=== PATIENT | male | born 1980 | race Caucasian/White ===

== ENCOUNTER 2020-07-14 12:12 | Emergency (ER) | payer OTHER, SELFPAY ==
--- NOTE | ~2020-07-14 | XR_ITS ---
EXAMINATION: XR hand LT min 3V DATE: 07/14/2020 12:27 INDICATION: Left hand pain post fall TECHNIQUE: Posteroanterior, oblique and lateral views of the left hand were obtained. COMPARISON: None. FINDINGS: Alignment is normal. No fracture. Joint spaces are normal. Soft tissues are unremarkable. IMPRESSION: 1. . Negative left hand radiographs. Reviewed, dictated and finalized at location A. HOLDER
--- NOTE | 2020-07-14 12:15 | ED.GENADULT ---
HPI - General Adult General Chief complaint: Extremity Injury, Upper Stated complaint: Left hand Pain Time Seen by Provider: 07/14/20 12:15 Source: patient Mode of arrival: ambulatory Limitations: no limitations History of Present Illness HPI narrative: 40-year old male patient presents to the [facility] with complaints of left hand pain. Patient states that he was walking around in his backyard going down a couple concrete steps when he slipped on the steps and using his left hand trying to brace his fall he hit his left hand. Patient states mostly having pain to the fourth and fifth fingers and metacarpals. Patient denies take anything for pain or icing it. Denies hitting his head or loss of consciousness at the time of the fall. Related Data Home Medications Medication Instructions Recorded Confirmed No Home Medications 07/14/20 07/14/20 Allergies Allergy/AdvReac Type Severity Reaction Status Date / Time No Known Allergies Allergy Verified 07/03/19 10:13 Review of Systems Review of Systems: Narrative: CONSTITUTIONAL: Denies fever, chills, or sweats. EYES: Denies visual changes, redness, or discharge. ENT: Denies rhinorrhea, congestion, sore throat, or otalgia. CARDIOVASCULAR: Denies chest pain, palpitations, or edema. RESPIRATORY: Denies cough or dyspnea. GASTROINTESTINAL: Denies abdominal pain, nausea, vomiting, or diarrhea. GENITOURINARY: Denies dysuria or hematuria. SKIN: Denies rash or itching. MUSCULOSKELETAL: Denies back pain, joint pain, or myalgia. Positive left hand pain NEUROLOGIC: Denies headache, numbness, or weakness. PSYCHIATRIC: Denies anxiety or depression. [facility] Surgical History Surgical History (Updated 07/14/20 @ 12:23 by CHIKI Sykes) H/O vasectomy Reversal of vasectomy Social History Social History (Updated 07/14/20 @ 12:23 by CHIKI Sykes) Smoking status: Current every day smoker Gender identity (if verbalized by the patient): Male Comments At the time of my signature I agree with nursing past medical history, surgical, social, and family history. There is no relevant family history pertinent to the presenting complaint. Exam Narrative: Exam Narrative: GENERAL: Well-appearing, well-nourished, and in no acute distress. HEAD: Normocephalic, atraumatic. EYES: PERRLA and EOMI. ENT: Nares clear, no rhinorrhea or epistaxis. Mucous membranes moist. NECK: Supple. No lymphadenopathy CHEST: Clear to auscultation. No respiratory distress. HEART: Regular rate and rhythm. No murmur heard. Normal peripheral pulses. ABDOMEN: Soft, nontender, nondistended, normal active bowel sounds. EXTREMITIES: The L hand is without obvious asymmetry or deformity when compared to the R hand. No swelling, erythema, atrophy, or obvious deformity. No open wounds, nail avulsion, tissue avulsion, partial or complete amputation, subungual hematoma, bony deformity. Patient has tenderness to the fourth and fifth metacarpals on the dorsal side of the hand. Patient also has some tenderness along the MCP P joints on palpation of the fourth finger. Normal cascade of fingers. Normal flexion and extension of fingers. FDS and FDP intact aganist restistance. No focal fullness, thobbing pain, swelling of fingertip. Pulses and cap refill. SKIN: Warm, dry, no rash. NEURO: No focal deficits. Alert and oriented x3. Course Reevaluation(s) Reevaluation #1: Reevaluated patient after his x-ray resulted. Notified him that there is no acute fractures noted in the x-ray today. We will go ahead and splint his fourth finger on the left hand just for comfort. Discussed with him he can take Tylenol and ibuprofen for the pain continue to use ice to help with any swelling. Discussed with patient that we will give him a copy of the x-ray and if he has any further issues he will need to follow-up with his primary doctor. Patient verbalized understanding denies any other questions or concerns at this time. Date:
[2020-07-14 12:20] VITALS: BP 139/84; PULSE 94; RESP 16; TEMP 37.2; O2SAT 99
[2020-07-14 12:23] VITALS: BP 139/84; PULSE 94; RESP 16; TEMP 37.2; O2SAT 99
== END 2020-07-14 12:59 | disposition home or self-care (01) ==
PROVIDERS: Emergency Provider Nurse Practitioner Family
DX: S63.615A Unspecified sprain of left ring finger, initial encounter (principal); W10.9XXA Fall (on) (from) unspecified stairs and steps, initial encounter; F17.200 Nicotine dependence, unspecified, uncomplicated
CPT/HCPCS: 29130; 73130; 99213; G0463

== ENCOUNTER 2022-04-29 18:24 | Emergency (ER) | payer OTHER, SELFPAY ==
--- NOTE | 2022-04-29 19:27 | ED.URI ---
HPI - URI/Sore Throat General Chief Complaint: Upper Respiratory Infection Stated Complaint: sore throat History of Present Illness HPI Narrative: 42-year-old male presented for complaint of sore throat for 3 days. Pain is worse in the morning. Endorses his children were treated for strep throat. Denies cough, congestion, nausea, vomiting, diarrhea, fevers or chills. Not taking anything for symptoms. Related Data Allergies Allergy/AdvReac Type Severity Reaction Status Date / Time amoxicillin Allergy Rash Verified 04/29/22 19:06 Review of Systems Review of Systems: CONSTITUTIONAL: Denies body aches, fever, chills, or sweats. EYES: Denies visual changes, redness, or discharge. ENT: Denies rhinorrhea, congestion, or otalgia. CARDIOVASCULAR: Denies chest pain, palpitations, or edema. RESPIRATORY: Denies dyspnea. GASTROINTESTINAL: Denies abdominal pain, nausea, vomiting, or diarrhea. SKIN: Denies rash, itching, or wounds. MUSCULOSKELETAL: Denies back pain, joint pain, or myalgia. NEUROLOGIC: Denies headache [facility] Surgical History Surgical History H/O vasectomy Reversal of vasectomy Social History Social History Smoking status: Current every day smoker Gender identity (if verbalized by the patient): Male Exam Narrative: GENERAL: Ill-appearing, nontoxic EYES: conjunctivae clear ENT: Mucous membranes moist. TMs pearly simpson with normal light reflex bilaterally; no tragal tenderness. Oropharynx erythematous without lesions. Tonsils enlarged 3+ and without exudate. No drooling, no hoarseness, no trismus, uvula midline. No tripod positioning, hot potato voice, or soft palate swelling. NECK: Supple. No lymphadenopathy CHEST: Clear to auscultation, breath sounds equal. HEART: Regular rate and rhythm. No murmur heard. SKIN: Warm, dry, no rash. NEURO: Alert and oriented x3. Course Course Emergency Course: Patient is aware of diagnosis, understands and agrees to treatment plan. Anticipatory guidance given. Patient agrees to follow-up as directed and is aware of reasons to seek care at the emergency department. Portions of this record may have been created with voice recognition software Level of Care: Express Care Visit MDM - URI/Sore Throat MDM Narrative Medical decision making narrative: strep result reviewed with pt. Advise supportive treatments. PCN allergy. Patient is appropriate for outpatient treatment and follow-up. Differential Diagnosis Differential diagnosis: Likely upper respiratory infection, viral infection and pharyngitis Lab Data Labs: Strep Screen Positive Group A Strep *(Reference Range: Negative)* Discharge Plan Discharge Clinical Impression: Strep pharyngitis Patient Disposition: Home, Self-Care Condition: Stable Instructions: Strep Throat (ED) Additional Instructions: Return to work after 24 hours of antibiotic therapy, provided you are fever free and otherwise well. - Take the antibiotic as directed. Fever and sore throat typically resolve within one to three days. -Eat and drink things that are easy to swallow, like soft foods, cool liquids, tea with honey, or popsicles . -Salt water gargles and/or may use topical anesthetic (Chloraseptic spray) or lozenges to relieve dryness or throat pain -Alternate Tylenol and ibuprofen as needed for pain and fever as directed. 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 Throw away the toothbrush after 24hours of antibiotic. -Follow up with primary care provider in 2-3 days if condition is not improving -Go to the ER if you have trouble breathing, cannot drink enough fluids, have muffled voice or drooling, difficulty opening your mouth, or severe swelling. Prescriptions: New prednisone 50 mg tablet
== END 2022-04-29 19:34 | disposition home or self-care (01) ==
LOC: EXPBETH 18:26
PROVIDERS: Emergency Provider Nurse Practitioner Family
DX: J02.0 Streptococcal pharyngitis (principal)
CPT/HCPCS: 87880; 99213; G0463

== ENCOUNTER 2024-09-05 15:32 | Emergency (ER) | payer OTHER, SELFPAY ==
[2024-09-05 15:36] VITALS: BP 134/78; PULSE 95; RESP 20; TEMP 36.9; O2SAT 98
--- OUTSIDE RECORDS SUMMARY | 2024-09-05 15:36 | XMS_ITS | Clinical Summary ---
Author Organization [facility] [employer] Address [address] [place] [address] Care Team Providers Care Bill Collector Name Role Phone Tina Evans MD Primary Care Provider [phone] Source Comments [facility] [employer],[facility]-owned [facility] and Associated [facility]ician Practices is amultiple site organization consisting of ambulatory clinics and hospital sitesin [place], [place], [place] and [place]. This disclosure is being madepursuant to the Care Everywhere program and may not contain all information available regarding this patient. Last updated 18.[facility] [employer] Allergies No known active allergies Medications * Be aware that medications may not be up to date on this document. Alwaysverify current medications with the patient. Medication Sig Dispensed Refills Start Date End Date Status albuterol HFA (PROAIR HFA) 108 (90 BASE) MCG/ACT inhaler Inhale 2 puffs by mouth every 4 hours as needed for Shortness of Breath, Wheezing or Cough 1 Inhaler 09/14/2017 Active methylPREDNISolone (MEDROL DOSEPAK) 4 MG tablet Take by mouth as directed 1 Each 09/14/2017 Active Active Problems Problem Noted Date Diagnosed Date fall11/23/2016 Immunizations Name Administration Dates Next Due TDAP (7yrs+) 11/23/2016 Social History Tobacco Use Types Packs/Day Years Used Date Smoking Tobacco: Every Day Alcohol Use Standard Drinks/Week Comments Yes 0 (1 standard drink = 0.6 oz pur e alcohol) 3 beers per day Sex and Gender Information Value Date Recorded Sex Assigned at Not on file Gender Identity Not on file Sexual Orientation Not on file Last Filed Vital Signs Vital Sign Reading Time Taken Comments Blood Pressure 126/70 09/14/2017 10:11 AM EDUCATION TEACHER Pulse 75 09/14/2017 10:11 AM EDUCATION TEACHER Temperature 37.2 C (98.9 F) 09/14/2017 10:11 AM EDUCATION TEACHER Respiratory Rate 18 11/23/2016 6:18 PM CDT Oxygen Saturation 96% 09/14/2017 10:11 AM EDUCATION TEACHER Inhaled Oxygen Concentration - - Weight 136.1 kg (300 lb) 09/14/2017 10:11 AM EDUCATION TEACHER Height 180.3 cm (5' 11 ) 09/14/2017 10:11 AM EDUCATION TEACHER Body Mass Index 41.84 09/14/2017 10:11 AM EDUCATION TEACHER Plan of Treatment Health Maintenance Due Date Last Done Comments LIPID TESTING 1982 HIV SCREENING 1997 HEPATITIS C SCREENING 02/29/2000 HEPATITIS B VACCINE (1 of 3 - 19+ 3-dose series) 2001 PNEUMOCOCCAL VACCINE (1 of 2 - PCV) 2001 COVID-19 VACCINE ( - 2023-2 5 season) 2024 INFLUENZA VACCINE (#1) 2024 DEPRESSION SCREENING 07/14/2024 DTAP/TDAP/TD VACCINES (2 - T d or Tdap) 11/23/2026 11/23/2016 ZOSTER VACCINE (1 of 2) 2032 HIB VACCINE Aged Out No longer eligi ble based on patient's age to complete this topic HPV VACCINE Aged Out No longer eligi ble based on patient's age to complete this topic MENINGOCOCCAL (Group B) VACCINE Aged Out No longer eligible based on patient's age to complete this topic MENINGOCOCCAL VACCINE Aged Out No ronda nathan eligible based on patient's age to complete this topic Care Teams Bill Collector Relationship Specialty Start Date End Date Tina Evans MD [address], [place] [address] PCP - General Internal Medicine 11/23/16
--- OUTSIDE RECORDS SUMMARY | 2024-09-05 15:36 | XMS_ITS | Referral Summary ---
Author Organization [facility] [employer] Address [address] [place] [address] Care Team Providers Care Painter Decorator Name Role Phone Tina Evans MD Primary Care Provider [phone] Source Comments [facility]-owned [facility] and [facility]ician Practices is amultiple site organization consisting of ambulatory clinics and hospital sitesin [place], [place], [place] and [place]. This disclosure is being madepursuant to the Care Everywhere program and may not contain all information available regarding this patient. Last updated 18.[facility] [employer] Allergies No known active allergies Medications * [...] Comments Blood Pressure 126/70 09/14/2017 10:11 AM SALES AGENT INSURANCE Pulse 75 09/14/2017 10:11 AM SALES AGENT INSURANCE Temperature 37.2 C (98.9 F) 09/14/2017 10:11 AM SALES AGENT INSURANCE Respiratory Rate 18 11/23/2016 6:18 PM CDT Oxygen Saturation 96% 09/14/2017 10:11 AM SALES AGENT INSURANCE Inhaled Oxygen Concentration - - Weight 136.1 kg (300 lb) 09/14/2017 10:11 AM SALES AGENT INSURANCE Height 180.3 cm (5' 11 ) 09/14/2017 10:11 AM SALES AGENT INSURANCE Body Mass Index 41.84 09/14/2017 10:11 AM SALES AGENT INSURANCE Plan of Treatment Not on file Care Teams Painter Decorator Relationship Specialty Start Date End Date Tina Evans MD [address] [place] [address] PCP - General Internal Medicine 11/23/16
--- OUTSIDE RECORDS SUMMARY | 2024-09-05 15:36 | XMS_ITS | Patient Health Summary ---
Author Organization [facility] Address [address] [place] [address] Care Team Providers Care Funeral Pre Arrangement Counselor Name Role Phone Tina Evans MD Primary Care Provider [phone] Note from [facility],non-owned Affiliates and Associated Physician Practices is amultiple site organization consisting of ambulatory clinics and hospital sitesin [place], [place], [place] and [place]. This disclosure is being madepursuant to the Care Everywhere program and may not contain all information available regarding this patient. Last updated 18.[facility] Allergies No known active allergies Medications * Be aware that medications may not be up to date on this document. Alwaysverify current medications with the patient. * albuterol HFA (PROAIR HFA) 108 (90 BASE) MCG/ACT inhaler(Started 09/14/2017) Inhale 2 puffs by mouth every 4 hours as needed for Shortness of Breath, Wheezing or Cough * methylPREDNISolone (MEDROL DOSEPAK) 4 MG tablet(Started 09/14/2017) Take by mouth as directed Active Problems Problem Noted Date Diagnosed Date fall11/23/2016 Immunizations * TDAP (7yrs+)(Given 11/23/2016) Social History Tobacco Use Types Packs/Day Years [...] Comments Blood Pressure 126/70 09/14/2017 10:11 AM QUITLINE COUNSELOR Pulse 75 09/14/2017 10:11 AM QUITLINE COUNSELOR Temperature 37.2 C (98.9 F) 09/14/2017 10:11 AM QUITLINE COUNSELOR Respiratory Rate 18 11/23/2016 6:18 PM CDT Oxygen Saturation 96% 09/14/2017 10:11 AM QUITLINE COUNSELOR Inhaled Oxygen Concentration - - Weight 136.1 kg (300 lb) 09/14/2017 10:11 AM QUITLINE COUNSELOR Height 180.3 cm (5' 11 ) 09/14/2017 10:11 AM QUITLINE COUNSELOR Body Mass Index 41.84 09/14/2017 10:11 AM QUITLINE COUNSELOR Procedures * XR SHOULDER LEFT 2VW OR MORE(Performed 11/23/2016) Performed for Fall, initial encounter * XR FOOT RIGHT 3VW OR MORE(Performed 11/23/2016) Performed for Fall, initial encounter Results * XR SHOULDER 2+ VW LEFT (11/23/2016 7:05 PM CDT) Anatomical Region Laterality Modality Upper Extremity Radiographic Verónica ging 11/23/2016 7:15 PM CDT Impressions 11/23/2016 7:16 PM CDT Negative left shoulder series for fracture or malalignment. Narrative 11/23/2016 7:16 PM CDT X-RAY, LEFT SHOULDER SERIES HISTORY: 36-year-old, status post fall TECHNIQUE: 3 views of the left shoulder are submitted. FINDINGS: Normal anatomic alignment of the left glenohumeral joint is present. No fracture is seen. The left AC joint is intact. Procedure Note Celia Villa MD - 11/23/2016 X-RAY, LEFT SHOULDER SERIES HISTORY: 36-year-old, status post fall TECHNIQUE: 3 views of the left shoulder are submitted. FINDINGS: Normal anatomic alignment of the left glenohumeral joint is present. No fracture is seen. The left AC joint is intact. IMPRESSION Negative left shoulder series for fracture or malalignment. Carlene Jiang APRN-PHARMACY STUDENT DIAGNOSTIC IMAGING ORDERABLES * XR FOOT 3+ VW RIGHT (11/23/2016 7:04 PM CDT) Anatomical Region Laterality Modality Ankle / Foot Radiographic Verónica ging 11/23/2016 7:16 PM CDT Impressions 11/23/2016 7:18 PM CDT No definite fracture or subluxation. Forefoot subcutaneous soft tissue swelling. Consider follow-up if clinically warranted. Narrative 11/23/2016 7:18 PM CDT X-RAY, RIGHT FOOT SERIES HISTORY: Right foot pain following injury. Pain in the tarsometatarsal area. TECHNIQUE: 3 views of the right foot are submitted. FINDINGS: Normal anatomic alignment of the right foot is present. No definite fracture is seen. There is forefoot subcutaneous soft tissue swelling, mostly plantar. Procedure Note Celia Villa MD - 11/23/2016 X-RAY, RIGHT FOOT SERIES HISTORY: Right foot pain following injury. Pain in the tarsometatarsal area. TECHNIQUE: 3 views of the right foot are submitted. FINDINGS: Normal anatomic alignment of the right foot is present. No definite fracture is seen. There is forefoot subcutaneous soft tissue swelling, mostly plantar. IMPRESSION No definite fracture or subluxation. Forefoot subcutaneous soft tissue swelling. Consider follow-up if clinically warranted. Carlene Jiang PROTEIN CHEMIST-PHARMACY STUDENT DIAGNOSTIC IMAGING ORDERABLES Care Teams Funeral Pre Arrangement Counselor Relationship Specialty Start Date End Date Tina Evans MD [address] [address] PCP - General Internal Medicine 11/23/16
[2024-09-05 15:56] LABS: EDSTREPNEGPOS1 Positive (Negative)
[2024-09-05] MEDS: dexAMETHasone SOD PHOS INJ 10 MG/ML 1 ML VIAL PO (16:00)
--- NOTE | 2024-09-05 16:08 | ED.GENADULT ---
HPI - General Adult General Chief complaint: Upper Respiratory Infection Stated complaint: throat/swollen glands Source: patient Mode of arrival: ambulatory Limitations: no limitations History of Present Illness HPI narrative: Pt presents for evaluation of sore throat. Symptom onset yesterday. He denies fever, chills, nausea, vomiting, cough, shortness of breath. No recent sick contacts to his knowledge. He is not taking any medication to assist with the symptoms. He smokes just under 1/2 ppd. Related Data Home Medications ?Medication ?Instructions ?Recorded ?Confirmed ?Last Taken ?Type metformin .ROUTE 09/05/24 Unknown History rosuvastatin 10 mg tablet mg 09/05/24 Unknown History semaglutide 1 mg/dose (4 mg/3 mL) mg subcut 09/05/24 Unknown History subcutaneous pen injector (Ozempic) Allergies Allergy/AdvReac Type Severity Reaction Status Date / Time amoxicillin Allergy Rash Verified 09/05/24 15:44 Review of Systems Review of Systems: CONSTITUTIONAL: Denies fever, chills, or sweats. EYES: Denies visual changes, redness, or discharge. ENT: Reports sore throat. Denies rhinorrhea, congestion, or otalgia. CARDIOVASCULAR: Denies chest pain, palpitations, or edema. RESPIRATORY: Denies cough or dyspnea. GASTROINTESTINAL: Denies abdominal pain, nausea, vomiting, or diarrhea. GENITOURINARY: Denies dysuria or hematuria. SKIN: Denies rash or itching. MUSCULOSKELETAL: Denies back pain, joint pain, or myalgia. NEUROLOGIC: Denies headache, numbness, dizziness, or weakness. PSYCHIATRIC: Denies anxiety or depression. [facility] Past Medical History Medical History Hyperlipidemia Diabetes Surgical History Surgical History H/O vasectomy Reversal of vasectomy Family History Family History Mother Family history non-contributory Social History Social History Smoking packs per day: 0.5 Smoking cigarettes per day: 10.0 Smoking status: Current every day smoker Living arrangements: with family Gender identity (if verbalized by the patient): Male Sexual Orientation (if Verbalized by the Patient): Straight or Heterosexual Exam Narrative: GENERAL: Well-appearing, well-nourished, and in no acute distress. HEAD: Normocephalic, atraumatic. EYES: PERRLA and EOMI. ENT: Nares clear, no rhinorrhea or epistaxis. Mucous membranes moist. Bilateral tonsillar enlargement with erythema and white exudate. Uvula is midline. Bilateral TMs pearly simpson nonbulging NECK: Supple. No adenopathy or masses. No carotid bruits or JVD CHEST: Clear to auscultation. No respiratory distress. No wheezes rales or rhonchi HEART: Regular rate and rhythm. No murmur heard. Normal peripheral pulses. ABDOMEN: Soft, nontender, nondistended, normal active bowel sounds. EXTREMITIES: Normal range of motion. No edema. SKIN: Warm, dry, no rash. NEURO: No focal deficits. Alert and oriented x3. PSYCH: Normal mood and affect. Course Course Emergency Course: This is a 44-year-old male who presented for evaluation of sore throat. Rapid strep positive. Provided with Decadron while here. Will discharge with cephalexin. Increase hydration. [id number] agents for symptom management. Follow up with primary provider. Go to the ER for worsening symptoms. Patient in agreement with plan of care. Level of Care: Express Care Visit Vital Signs Vital signs: Vital Signs Temperature 36.9 C 09/05/24 15:36 Pulse Rate 95 09/05/24 15:36 Respiratory Rate 20 09/05/24 15:36 Blood Pressure 134/78 09/05/24 15:36 Pulse Oximetry 98 09/05/24 15:36 Oxygen Delivery Room Air 09/05/24 15:36 Temperature 36.9 C 09/05/24 15:36 Pulse Rate 95 09/05/24 15:36 Respiratory Rate 20 09/05/24 15:36 Blood Pressure 134/78 09/05/24 15:36 Pulse Oximetry 98 09/05/24 15:36 Oxygen Delivery Room Air 09/05/24 15:36 Medical Decision Making Vital Signs Vital Signs: Vital Signs Temperature 36.9 C 09/05/24 15:36 Pulse Rate 95 09/05/24 15:36 Respiratory Rate 20 09/05/24 15:36 Blood Pressure 134/78 09/05/24 15:36 Pulse Oximetry 98 09/05/24 15:36 Oxygen Delivery Room Air 09/05/24 15:36 Temperature 36.9 C 09/05/24 15:36 Pulse Rate 95 09/05/24 15:36 Respiratory Rate 20 09/05/24 15:36 Blood Pressure 134/78 09/05/24 15:36 Pulse Oximetry 98 09/05/24 15:36 Oxygen Delivery Room Air 09/05/24 15:36 Lab Data Labs: Lab Results 09/05/24 Range/Units 15:54 POC Grp A Strep Screen Positive (Negative) Discharge Plan Discharge Clinical Impression: Strep throat Patient Disposition: Home, Self-Care Condition: Stable Instructions: Antibiotic Form, Strep Throat (ED) Patient Language: Japanese Prescriptions: New cephalexin 500 mg tablet 500 mg PO Q12H 10 Days Qty: 20 0RF No Action rosuvastatin 10 mg tablet Ozempic 1 mg/dose (4 mg/3 mL) pen injector SUBCUT metformin .ROUTE Follow-up/Referrals: Lino Butler MD [Physician] - Stand Alone Forms: Work/School Release IP Time of Disposition: 15:55
== END 2024-09-05 16:12 | disposition home or self-care (01) ==
PROVIDERS: Emergency Provider Nurse Practitioner
DX: J02.0 Streptococcal pharyngitis (principal); F17.210 Nicotine dependence, cigarettes, uncomplicated; E11.9 Type 2 diabetes mellitus without complications; E78.5 Hyperlipidemia, unspecified
CPT/HCPCS: 87880; 99213; G0463; J1100